=== PATIENT | female | born 1965 | race Caucasian/White ===

== ENCOUNTER → 2019-07-20 10:00 | Outpatient (BNVA) | payer MEDICARE, OTHER, SELFPAY | PROVIDERS: Referring Provider Nurse Practitioner Family; Visit Provider Internal Medicine Rheumatology | DX: M05.9 Rheumatoid arthritis with rheumatoid factor, unspecified (principal); Z79.899 Other long term (current) drug therapy; M19.90 Unspecified osteoarthritis, unspecified site; L40.9 Psoriasis, unspecified | CPT/HCPCS: 36415; 85025; 99214 ==

== ENCOUNTER → 2019-07-20 11:19 | Outpatient (BNVA) | payer MEDICARE, OTHER, SELFPAY | PROVIDERS: Referring Provider Nurse Practitioner Family; Visit Provider Internal Medicine Rheumatology | DX: M05.9 Rheumatoid arthritis with rheumatoid factor, unspecified (principal); Z79.899 Other long term (current) drug therapy; M19.90 Unspecified osteoarthritis, unspecified site; L40.9 Psoriasis, unspecified | CPT/HCPCS: 85025 ==

== ENCOUNTER 2019-07-20 11:40 | Outpatient (CLI) | payer MEDICARE, OTHER, SELFPAY ==
--- NOTE | 2019-07-20 11:49 | XR_ITS ---
WS: [id number] LEFT KNEE: 3 VIEW(S) TECHNIQUE: AP, oblique(s) and lateral. HISTORY: inflammatory arthritis COMPARISON: None available. No fracture or dislocation. No joint space narrowing or osteophytes. No joint effusion. No soft tissue abnormality. XR/XR knee LT 3V* [id number] IMPRESSION: Normal LEFT knee.
--- NOTE | 2019-07-20 11:49 | XR_ITS ---
WS: [id number] LEFT HAND: 3 VIEW(S) TECHNIQUE: PA, oblique and lateral. HISTORY: inflammatory arthritis COMPARISON: None available. No acute fracture or dislocation. Mild narrowing of the interphalangeal joint spaces. No subluxation. No erosions. Mild narrowing of th e radiocarpal joint. No periarticular osteopenia or subluxation. XR/XR hand LT min 3V* [id number] IMPRESSION: Mild osteoarthritis.
--- NOTE | 2019-07-20 11:49 | XR_ITS ---
WS: [id number] RIGHT KNEE: 3 VIEW(S) TECHNIQUE: AP, oblique(s) and lateral. HISTORY: inflammatory arthritis COMPARISON: None available. No fracture or dislocation. No joint space narrowing or osteophytes. No joint effusion. No soft tissue abnormality. XR/XR knee RT 3V* [id number] IMPRESSION: Normal RIGHT knee.
--- NOTE | 2019-07-20 11:49 | XR_ITS ---
WS: [id number] CHEST 2 VIEWS HISTORY: inflammatory arthritis COMPARISON: None available. Lungs: Clear with no abnormality. No pleural effusion or pneumothorax. Cardiac size: Normal. Mediastinum/Aorta: Normal mediastinum. Bones: Normal. XR/XR chest 2V* [id number] IMPRESSION: Normal chest.
--- NOTE | 2019-07-20 11:49 | XR_ITS ---
WS: [id number] RIGHT HAND: 3 VIEW(S) TECHNIQUE: PA, oblique and lateral. HISTORY: inflammatory arthritis COMPARISON: None available. No acute fracture or dislocation. Mild narrowing of the interphalangeal joint spaces. No periarticular osteopenia. Mild narrowing of th e radiocarpal joint. More advanced joint space narrowing between the scaphoid and trapezium. No erosi ons. XR/XR hand RT min 3V* [id number] IMPRESSION: Mild osteoarthritis wrist and hand.
== END 2019-07-20 11:41 | disposition home or self-care (01) ==
LOC: RADWPI 11:48
PROVIDERS: PCP Nurse Practitioner Family; Visit Provider Internal Medicine Rheumatology
DX: M19.041 Primary osteoarthritis, right hand (principal); M19.031 Primary osteoarthritis, right wrist; M19.042 Primary osteoarthritis, left hand
CPT/HCPCS: 71046; 73130; 73562; 80076; 82565; 85651; 86140

== ENCOUNTER → 2019-09-05 08:38 | Outpatient (BNVA) | payer MEDICARE, OTHER, SELFPAY | PROVIDERS: PCP Nurse Practitioner Family; Visit Provider Internal Medicine Rheumatology | DX: M05.9 Rheumatoid arthritis with rheumatoid factor, unspecified (principal); Z79.899 Other long term (current) drug therapy; M19.90 Unspecified osteoarthritis, unspecified site | CPT/HCPCS: 99214 ==

== ENCOUNTER → 2019-11-08 09:17 | Outpatient (BNVA) | payer MEDICARE, OTHER, SELFPAY | PROVIDERS: PCP Nurse Practitioner Family; Visit Provider Internal Medicine Rheumatology | DX: Z79.899 Other long term (current) drug therapy (principal) | CPT/HCPCS: 36415; 80076; 82565; 85025; 85651; 86140 ==

== ENCOUNTER → 2019-12-06 11:59 | Outpatient (BNVA) | payer MEDICARE, OTHER, SELFPAY | PROVIDERS: PCP Nurse Practitioner Family; Visit Provider Internal Medicine Rheumatology | DX: M05.9 Rheumatoid arthritis with rheumatoid factor, unspecified (principal); Z79.899 Other long term (current) drug therapy; L40.9 Psoriasis, unspecified | CPT/HCPCS: 99214 ==

== ENCOUNTER → 2020-04-05 08:41 | Outpatient (BNVA) | payer MEDICARE, SELFPAY | PROVIDERS: PCP Nurse Practitioner Family | DX: M05.9 Rheumatoid arthritis with rheumatoid factor, unspecified (principal); Z79.899 Other long term (current) drug therapy; M19.90 Unspecified osteoarthritis, unspecified site | CPT/HCPCS: 36415; 80076; 82565; 85025; 85651; 86140 ==

== ENCOUNTER → 2020-05-08 13:36 | Outpatient (BNVA) | payer MEDICARE, SELFPAY | PROVIDERS: PCP Nurse Practitioner Family; Visit Provider Internal Medicine Rheumatology | DX: M05.79 Rheumatoid arthritis with rheumatoid factor of multiple sites without organ or systems involvement (principal); L40.9 Psoriasis, unspecified; Z79.899 Other long term (current) drug therapy; Z87.891 Personal history of nicotine dependence | CPT/HCPCS: 99214 ==

== ENCOUNTER → 2020-09-17 13:13 | Outpatient (BNVA) | payer MEDICARE, SELFPAY | PROVIDERS: PCP Nurse Practitioner Family; Visit Provider Internal Medicine Rheumatology | DX: L40.9 Psoriasis, unspecified (principal); M05.79 Rheumatoid arthritis with rheumatoid factor of multiple sites without organ or systems involvement; M05.9 Rheumatoid arthritis with rheumatoid factor, unspecified; M19.90 Unspecified osteoarthritis, unspecified site; Z79.899 Other long term (current) drug therapy | CPT/HCPCS: 36415; 80076; 82565; 85025; 86140 ==

== ENCOUNTER → 2020-09-24 13:06 | Outpatient (BNVA) | payer MEDICARE, SELFPAY | PROVIDERS: PCP Nurse Practitioner Family; Visit Provider Internal Medicine Rheumatology | DX: M05.79 Rheumatoid arthritis with rheumatoid factor of multiple sites without organ or systems involvement (principal); Z79.899 Other long term (current) drug therapy; L40.9 Psoriasis, unspecified; Z87.891 Personal history of nicotine dependence | CPT/HCPCS: 99214 ==

== ENCOUNTER → 2021-01-14 12:53 | Outpatient (BNVA) | payer MEDICARE, SELFPAY | PROVIDERS: PCP Nurse Practitioner Family; Visit Provider Internal Medicine Rheumatology | DX: L40.9 Psoriasis, unspecified (principal); M05.79 Rheumatoid arthritis with rheumatoid factor of multiple sites without organ or systems involvement; M05.9 Rheumatoid arthritis with rheumatoid factor, unspecified; M19.90 Unspecified osteoarthritis, unspecified site; Z71.89 Other specified counseling; Z79.899 Other long term (current) drug therapy | CPT/HCPCS: 36415; 80076; 82565; 85025; 86140 ==

== ENCOUNTER → 2021-02-14 13:02 | Outpatient (BNVA) | payer MEDICARE, SELFPAY | PROVIDERS: PCP Nurse Practitioner Family; Visit Provider Internal Medicine Rheumatology | DX: M05.79 Rheumatoid arthritis with rheumatoid factor of multiple sites without organ or systems involvement (principal); L40.9 Psoriasis, unspecified; Z79.899 Other long term (current) drug therapy; Z71.89 Other specified counseling; Z87.891 Personal history of nicotine dependence | CPT/HCPCS: 36415; 80076; 99214 ==

== ENCOUNTER → 2021-03-14 11:01 | Outpatient (BNVA) | payer MEDICARE, SELFPAY | PROVIDERS: PCP Nurse Practitioner Family; Visit Provider Internal Medicine Rheumatology | DX: R79.89 Other specified abnormal findings of blood chemistry (principal); Z79.899 Other long term (current) drug therapy | CPT/HCPCS: 80076 ==

== ENCOUNTER → 2021-05-09 15:10 | Outpatient (BNVA) | payer MEDICARE, SELFPAY | PROVIDERS: PCP Nurse Practitioner Family; Referring Provider Internal Medicine Rheumatology; Visit Provider Internal Medicine Rheumatology | DX: M05.79 Rheumatoid arthritis with rheumatoid factor of multiple sites without organ or systems involvement (principal); L40.9 Psoriasis, unspecified; M05.9 Rheumatoid arthritis with rheumatoid factor, unspecified; M19.90 Unspecified osteoarthritis, unspecified site; Z79.899 Other long term (current) drug therapy | CPT/HCPCS: 80076; 82565; 85025; 86140 ==

== ENCOUNTER → 2021-06-05 14:53 | Outpatient (BNVA) | payer MEDICARE, SELFPAY | PROVIDERS: PCP Nurse Practitioner Family; Visit Provider Internal Medicine Rheumatology | DX: M05.79 Rheumatoid arthritis with rheumatoid factor of multiple sites without organ or systems involvement (principal); Z79.899 Other long term (current) drug therapy; Z87.2 Personal history of diseases of the skin and subcutaneous tissue; Z71.89 Other specified counseling; Z87.891 Personal history of nicotine dependence | CPT/HCPCS: 99214 ==

== ENCOUNTER 2022-10-24 12:26 | Emergency (ER) | payer MEDICARE, OTHER, SELFPAY ==
[2022-10-24 12:53] VITALS: BP 146/104; PULSE 80; RESP 20; TEMP 36.3; O2SAT 97; BMI 28.3
--- NOTE | 2022-10-24 12:58 | ED_ITS ---
HPI - Abdominal Pain General: Chief Complaint: Abdominal Pain Stated Complaint: abd pains Time Seen by Provider: 10/24/22 12:57 Source: patient Mode of arrival: ambulatory History of Present Illness: 56-year-old female presents emergency room with reports of pain with a supraumbilical hernia. She attempted to reduce it at home but was not able. Hernias been present for a year. Multiple times in the past she has been able to self reduce. She has not had any intervention with that in the past. She has not recently seen surgery. She denies any vomiting associated with this she has not had any prolonged period of time where she has not been able to have bowel movements. MD elicited complaint: abdominal pain Onset (ago): hour(s) Pain Consistency: intermittent Location: Periumbilical Severity: mild Quality: cramping Exacerbating factors: nothing Relieving factors: nothing Associated Symptoms: Reports nausea; Denies anorexia, chills, GI cramping, dyspepsia, dysuria, fever(s), loose stools, poor appetite, syncope and vomiting Review of Systems Const: Denies: fever(s) or chills Card: Denies: syncope GI: Reports: abdominal pain and nausea; Denies: vomiting or GI cramping : Denies: dysuria PFSH ED PFSH: Medical History GERD (gastroesophageal reflux disease) High risk medication use Hypertension Hypothyroidism Immunization counseling Inflammatory arthritis Joint pain Psoriasis Rheumatoid arthritis Seropositive rheumatoid arthritis Seropositive rheumatoid arthritis of multiple sites Surgical History History of hysterectomy S/P foot surgery, left Family History Mother Diabetes Father Hypertension Grandmother Hypertension Denies family history of Rheumatoid arthritis Lupus Cancer Stroke Social History Smoking and tobacco status: former smoker Alcohol intake: never Substance/Drug Use: never Physical Exam Const: GENERAL APPEARANCE: cooperative and comfortable ORIENTATION/CONSCIOUSNESS: Yes awake, Yes oriented to person, Yes oriented to place and Yes oriented to time HENMT: COMMON NORMALS: normocephalic, atraumatic and hearing grossly normal bilaterally HEAD & SCALP: normocephalic and atraumatic Resp: COMMON NORMALS: normal respiratory effort, No retractions, No use of accessory muscles and clear to auscultation bilaterally AUSCULTATION: clear to auscultation bilaterally Cardio: COMMON NORMALS: regular rate, regular rhythm and No murmurs present (Cardio) RATE: regular rate RHYTHM: regular rhythm GI: COMMON NORMALS: No hepatosplenomegaly present AUSCULTATION: Yes normoactive bowel sounds PALPATION: Yes Tenderness to palpation present (GI) (Periumbilical), No Guarding due to palpation present (GI) and Yes No hepatosplenomegaly present OTHER: Tender periumbilical incarcerated hernia which was reduced with manual manipulation without significant difficulty Neuro: SENSORIUM/ORIENTATION: Yes oriented to person, Yes oriented to place and Yes oriented to time Skin: COMMON NORMALS: no rashes or lesions noted GENERAL SKIN EXAM: no rashes or lesions noted Course Vital Signs: Vital signs: Vital Signs Temperature 97.4 F L 10/24/22 12:53 Pulse Rate 80 10/24/22 12:53 Respiratory Rate 20 H 10/24/22 12:53 Blood Pressure 146/104 10/24/22 12:53 Pulse Oximetry 97 10/24/22 12:53 Oxygen Delivery Me thod Room Air 10/24/22 12:53 MDM - Abdominal Pain Medical Decision Making Reduction of midline abdominal wall hernia without difficulty. Patient tolerated well. Immediate relief of discomfort. We will discharge patient home and make arrangements for short-term follow-up with general surgery. Discharge Plan Discharge Patient Disposition: Home Clinical Impression: Hernia, umbilical Condition: Stable Prescriptions: No Action omeprazole 40 mg capsule,delayed release(DR/EC) 40 mg PO QDAY levothyroxine 75 mcg capsule 75 mcg PO QDAY prednisone 20 mg tablet See Rx Instructions PO .COMPLEX PRN (Reason: joint pain flare) Qty: 30 1RF Rx Instructions: take 1 tab daily for 5-7 days as needed for arthritis flare PO PRN; folic acid 1 mg tablet 1 mg PO DAILY Qty: 90 3RF Humira Pen 40 mg/0.8 mL pen injector kit 40 mg SUBCUT .Q7days Qty: 4 3RF Discharge Orders: Discharge ED (Routine); Ordered 10/24/22 Ordered By: Errol Naidu Referrals: Kathe Hilliard [Primary Care Provider] - Patient Instructions: Opioid Safety, Pain Management Activity Restrictions/Additional Instructions: You were seen today for an umbilical hernia. It was easily reduced at the bedside. Avoid heavy lifting, do not lift more than 10 pounds (a gallon of milk weighs approximately 10 pounds). Case management make arrangements for follow- up with general surgery for definitive care. Coding Level of Care Code ED Banking Supervisor for Jc Roy
[2022-10-24 13:30] VITALS: PULSE 67; RESP 16; TEMP 36.3; O2SAT 97
--- NOTE | 2022-10-24 14:18 | DCPLANNER ---
Addendum entered by Lolis Clarke 11/04/22 14:33: Patient had a follow up appointment scheduled with general surgery - patient did attend appointment. Addendum entered by Lolis Clarke 10/28/22 11:30: Patient has a follow up appointment scheduled for Friday, October 28, 2022 at 2:[address] Rucker at general surgery. Original Note: clinical applications manager had message to schedule a follow up appointment for patient with general surgery. clinical applications manager sent patients information to the front office staff at general surgery. Patients information will be printed and reviewed. Clinic will call patient with appointment information.
== END 2022-10-24 13:34 | disposition home or self-care (01) ==
PROVIDERS: Emergency Provider Family Medicine; PCP Nurse Practitioner Family
DX: K42.9 Umbilical hernia without obstruction or gangrene (principal); Z87.891 Personal history of nicotine dependence
CPT/HCPCS: 99282

== ENCOUNTER → 2022-10-28 14:47 | Outpatient (BNVA) | payer MEDICARE, OTHER, SELFPAY | PROVIDERS: PCP Nurse Practitioner Family; Visit Provider Surgery | DX: K42.9 Umbilical hernia without obstruction or gangrene (principal) | CPT/HCPCS: 99203 ==

== ENCOUNTER 2022-12-29 08:27 | Day surgery (SDC) | payer MEDICARE, OTHER, SELFPAY ==
[2022-12-26 11:58] VITALS: BMI 27.6
[2022-12-29] VITALS (10 sets, daily range): BP systolic 102–156; BP diastolic 55–89; PULSE 50–70; RESP 16–23; TEMP 36.1–36.6; O2SAT 94–98
[2022-12-29] MEDS: scopolamine 1.5 Patch 1 PATCH TRANSDERMA (09:00)
[2022-12-29] MEDS: diphenhydrAMINE 50 mg/mL SDV 1mL 12.5 MG IVP (09:00)
--- NOTE | 2022-12-29 09:00 | P.ANESASSM_ITS ---
Pre-Anesthetic Assessment Height/Weight: Height 1.6 m Weight 70.76 kg Temp Pulse Resp BP Pulse Ox O2 Del Method 98 F 70 16 156/89 95 Room Air 12/29/22 08:33 12/29/22 08:33 12/29/22 08:33 12/29/22 08:33 12/29/22 08:33 12/29/22 08:54 Operation Date: 12/29/22 10:20 Proposed Procedures p 38260 lap umbilical hernia repair with mesh K42.9(Not Applicable) - Camilo Rucker DO Familial anesthetic complications: PONV Was Beta Mariela taken within 24 hours: N/A Was Clonidine taken within 24 hours: N/A Last intake: Intake Last Liquid Date 12/28/22 Last Liquid Time 21:00 Last Solid Date 12/28/22 Last Solid Time 21:00 Social No alcohol and No tobacco Exam alert, oriented x 3, clear to auscultation bilaterally and regular rate & rhythm Airway Mallampati: Class III Dentition: false Metabolic Hyperlipidemia and Thyroid Disease [facility] [place] Rheumatoid Arthritis Anesthetic Plan ASA status: 3 Anesthesia: General Risk of > 500 ml blood loss (7ml/kg in children): No Medications/Allergies Home Medications Medication Instructions Recorded Confirmed Last Taken Type levothyroxine 75 mcg capsule 75 mcg PO QDAY 07/19/19 12/26/22 12/28/22 History omeprazole 40 mg capsule,delayed 40 mg PO QDAY 07/19/19 12/26/22 12/28/22 History release folic acid 1 mg tablet 1 mg PO DAILY #90 tabs 11/12/20 12/26/22 12/28/22 Rx prednisone 20 mg tablet See Rx Instructions PO .COMPLEX 06/05/21 12/26/22 Unknown Rx PRN joint pain flare #30 tabs adalimumab 40 mg/0.8 mL 40 mg SUBCUT .[id number] 12/26/22 12/26/22 12/08/22 History subcutaneous pen kit (Humira Pen) tirzepatide 2.5 mg/0.5 mL 2.5 mg SUBCUT .Q7DAYS 12/26/22 12/29/22 12/08/22 History subcutaneous pen injector (Mounjaro) Allergies Allergy/AdvReac Type Severity Reaction Status Date / Time tetracycline AdvReac unknown Verified 12/29/22 08:40 PFSH Anesthesia Medical History (Updated 11/01/22 @ 00:01 by IONA Rome) GERD (gastroesophageal reflux disease) High risk medication use Hypertension Hypothyroidism Immunization counseling Inflammatory arthritis Joint pain Psoriasis Rheumatoid arthritis Seropositive rheumatoid arthritis Seropositive rheumatoid arthritis of multiple sites Surgical History (Updated 10/28/22 @ 15:37 by Camilo Rucker DO) History of hysterectomy Hx of colonoscopy 4 yrs ago S/P foot surgery, left Family History Mother Diabetes Father Hypertension Grandmother Hypertension Denies family history of Rheumatoid arthritis Lupus Cancer Stroke Social History Smoking and tobacco status: former smoker Alcohol intake: never Substance/Drug Use: never Data Anesthesia Cardiac Studies: No Data to Display
[2022-12-29] MEDS: sodium chloride 0.9% 1,000 ML 30 ML IV (09:01)
--- NOTE | 2022-12-29 09:12 | PM.HP ---
Providers/Chief Complaint Primary Care Provider: Kathe Arminda Chief Complaint: K42.9 History of Present Illness Erica Beverly is a 57 year old female with an umbilical hernia Medications/Allergies Home Medications Medication Instructions Recorded Confirmed Last Taken Type levothyroxine 75 mcg capsule 75 mcg PO QDAY 07/19/19 12/26/22 12/28/22 History omeprazole 40 mg capsule,delayed 40 mg PO QDAY 07/19/19 12/26/22 12/28/22 History release folic acid 1 mg tablet 1 mg PO DAILY #90 tabs 11/12/20 12/26/22 12/28/22 Rx prednisone 20 mg tablet See Rx Instructions PO .COMPLEX 06/05/21 12/26/22 Unknown Rx PRN joint pain flare #30 tabs adalimumab 40 mg/0.8 mL 40 mg SUBCUT .[id number] 12/26/22 12/26/22 12/08/22 History subcutaneous pen kit (Humira Pen) tirzepatide 2.5 mg/0.5 mL 2.5 mg SUBCUT .Q7DAYS 12/26/22 12/29/22 12/08/22 History subcutaneous pen injector (Mounjaro) Allergies Allergy/AdvReac Type Severity Reaction Status Date / Time tetracycline AdvReac unknown Verified 12/29/22 08:40 PFSH Acute PFSH: Medical History (Updated 11/01/22 @ 00:01 by IONA Rome) GERD (gastroesophageal reflux disease) High risk medication use Hypertension Hypothyroidism Immunization counseling Inflammatory arthritis Joint pain Psoriasis Rheumatoid arthritis Seropositive rheumatoid arthritis Seropositive rheumatoid arthritis of multiple sites Surgical History (Updated 10/28/22 @ 15:37 by Camilo Rucker DO) History of hysterectomy Hx of colonoscopy 4 yrs ago S/P foot surgery, left Family History Mother Diabetes Father Hypertension Grandmother Hypertension Denies family history of Rheumatoid arthritis Lupus Cancer Stroke Social History Smoking and tobacco status: former smoker Alcohol intake: never Substance/Drug Use: never Vitals/I&O/Wt Last Vital Signs Temp 98 F 12/29/22 08:33 Pulse 70 12/29/22 08:33 Resp 16 12/29/22 08:33 BP 156/89 12/29/22 08:33 Pulse Ox 95 12/29/22 08:33 O2 Del Method Room Air 12/29/22 08:54 Physical Exam Narrative: Abdomen: Preoperative measurement of hernia defect is 1.5 cm in diameter A&P Assessment and plan (1) Hernia, umbilical: Plan laparoscopic umbilical hernia repair with mesh The risks and benefits of the procedure, including but not limited to, bleeding, infection, mesh infection requiring mesh excision antibiotic therapy and repeat surgery, damage surrounding structures, conversion to an open procedure, scar, numbness, pain, and/or recurrence were explained to the patient. Patient is understanding of the risks and wishes to proceed. Attestations Medical Necessity Statement*: HOME Coding Level of Care Code Acute Code for g Fwd Diagnoses Hernia, umbilical K42.9
[2022-12-29] MEDS: ceFAZolin 2,000 MG in sodium chloride 0.9% (plus) 50 ML 100 MG IV (09:35)
[2022-12-29] MEDS: lidocaine-epi 2% 20 mL INJ INJECTION (09:55)
[2022-12-29] MEDS: tranexamic acid 1,000 mg/10mL SDV 2000 MG IV (10:17)
--- NOTE | 2022-12-29 10:22 | PM.OP ---
Operative Report Date of procedure: December 29, 2022 Pre-op diagnosis: Umbilical hernia Post-op diagnosis: same Procedure done: Laparoscopic repair of umbilical hernia with mesh Implants: 11.4 cm round Ventralight mesh Specimens removed/disposition: Hernia sac Surgeon: Dr. Camilo Rucker DO Anesthesia: General Estimated blood loss (mL): 5 Complications: None apparent Brief History: This a very pleasant 57-year-old female with an umbilical hernia. Laparoscopic repair with mesh was indicated. The risk and benefits were explained and documented. Procedure: Patient was wheeled into the operative room and placed on the OR table in a supine position. Abdomen was inspected prepped and draped in usual sterile fashion. Time-out was performed and all present were in agreement. A 15 blade scalp was used to make a 5 millimeter incision left upper quadrant. A Veress needle was placed into the incision and intra-abdominal insufflation was brought to 15 millimeters of mercury. A 12 millimeter trocar was placed into the left lower quadrant. The energy but device was then used to cut out the hernia sac. Hernia defect measured 1 cm in greatest diameter. An 11.4 cm ventralight mesh was placed into the abdomen and brought up through the umbilicus using an the Thomas-Mercedes. The mesh was then tacked in place in a double crown fashion. The skeleton of the mesh was removed via the left lower quadrant. The hernia sac was then removed from the abdomen via the left lower quadrant. The left lower quadrant port site was closed with an 0 Vicryl suture in a Thomas-Mercedes in a [id number] fashion. Incisions were closed with 4-0 Monocryl in a subcuticular interrupted fashion. Skin glue was applied. A dressing that included cotton balls and a Tegaderm was placed over the umbilicus. Patient tolerated the procedure well.
[2022-12-29] MEDS: fentaNYL 50 mcg/mL INJ 2mL IVP (10:45)
[2022-12-29] MEDS: HYDROcodone-acetaminophen 10-325 mg Tablet 1 TAB PO (11:34)
[2022-12-29] MEDS: ondansetron 2 mg/ML SDV 2 mL 4 MG IVP ×2 (11:39→12:16)
[2022-12-29] MEDS: HYDROmorphone 1 mg/mL INJ 1 mL 0.5 MG IVP (11:49)
--- NOTE | 2022-12-29 12:00 | ANE.PACU2 ---
Inpatient post-anesthesia follow up: Airway intact: Yes Vital signs: Temperature 97.2 F Pulse Rate 67 Respiratory Rate 18 Blood Pressure 130/78 Pulse Oximetry 94 Oxygen Delivery Me thod Room Air Oxygen Flow Rate 3 Fraction of Inspir ed Oxygen Hydration adequate: Yes Nausea and vomiting: No Pain level: 1 Mental status: Baseline
[2022-12-29 12:27] LABS: Glucose Point of Care 115 mg/dL (70-110)
== END 2022-12-29 12:30 | disposition home or self-care (01) ==
PROVIDERS: PCP Nurse Practitioner Family; Visit Provider Surgery
PROC: 0WQF4ZZ Repair Abdominal Wall, Percutaneous Endoscopic Approach (ICD-10-PCS; CPT 49591; principal; 2022-12-29 10:20)
DX: K42.9 Umbilical hernia without obstruction or gangrene (principal); E78.5 Hyperlipidemia, unspecified; E03.9 Hypothyroidism, unspecified; Z79.85 Long-term (current) use of injectable non-insulin antidiabetic drugs; Z79.52 Long term (current) use of systemic steroids; K21.9 Gastro-esophageal reflux disease without esophagitis; M05.9 Rheumatoid arthritis with rheumatoid factor, unspecified; Z87.891 Personal history of nicotine dependence
CPT/HCPCS: 49591; 36416; 82962; 88302; C1781; J0690; J1100; J1170; J1200; J2405; J2704; J2710; J3010; J3490; J7030

== ENCOUNTER → 2023-01-13 14:10 | Outpatient (BNVA) | payer MEDICARE, OTHER, SELFPAY | PROVIDERS: PCP Nurse Practitioner Family; Visit Provider Surgery | DX: Z98.890 Other specified postprocedural states (principal); Z87.19 Personal history of other diseases of the digestive system | CPT/HCPCS: 99024 ==